=== PATIENT | male | born 2000 | race Caucasian/White ===

== ENCOUNTER 2022-08-16 12:37 | Emergency (ER) | payer OTHER ==
[~2022-08-16] VITALS: Ht 172.7 cm; Wt 63.5 kg
[2022-08-16 12:49] VITALS: BP 130/80
[2022-08-16] MEDS ORDERED: NACL 0.9% 1,000 ML IV ONE (13:20)
[2022-08-16] MEDS ORDERED: ONDANSETRON 4 MG/2 ML VIAL IVP ONE (13:20)
[2022-08-16 13:49] LABS: BASOPHILS % (AUTO) 0.3 % (0.0-2.0); EOSINOPHILS # (AUTO) 0.1 K/uL (0-0.4); EOSINOPHILS % (AUTO) 0.4 % (0.0-4.0); HEMATOCRIT 48.9 % (36-52); HEMOGLOBIN 16.6 g/dL (12.0-18.0); LYMPHOCYTES # (AUTO) 1.2 K/uL (2.0-11.5); LYMPHOCYTES % (AUTO) 7.4 % (20.5-51.1); MEAN CORPUSCULAR HEMOGLOBIN 30 pg (27-31); MEAN CORPUSCULAR HGB CONC 34 g/dL (33-37); MEAN CORPUSCULAR VOLUME 88.9 fL (80-94); MONOCYTES # (AUTO) 0.6 K/uL (0.8-1.0); MONOCYTES % (AUTO) 3.7 % (1.7-9.3); NEUTROPHILS # (AUTO) 14.5 K/uL (1.8-7.7); NEUTROPHILS % (AUTO) 88.2 % (42.2-75.2); PLATELET COUNT (AUTO) 300 K/uL (140-450); RED CELL DISTRIBUTION WIDTH 12.9 % (11.6-13.7); WHITE BLOOD COUNT (AUTO) 16.4 K/uL (4.8-10.8)
[2022-08-16 14:05] LABS: ALBUMIN 4.7 g/dL (3.4-5.0); ANION GAP 13.9 (8-16); CARBON DIOXIDE 27.4 mmol/L (21-32); CREATININE 1.3 mg/dL (0.6-1.3); POTASSIUM 4.3 mmol/L (3.5-5.1); TOTAL BILIRUBIN 0.5 mg/dL (0.0-1.0)
[2022-08-16] MEDS ORDERED: KETOROLAC 30 MG/ML VIAL IVP ONE (14:20)
[2022-08-16] MEDS ORDERED: ONDA-188 PO (14:22)
[2022-08-16 14:45] VITALS: BP 118/62
--- NOTE | 2022-08-16 15:02 | NUR ---
Patient discharged with v/s stable. Written and verbal after care instructions given. Patient alert, oriented and verbalized understanding of instructions. Ambulatory with steady gait. All questions addressed prior to discharge. ID band removed. Patient advised to follow up with PMD. Rx of Zofran given. Opportunity to ask questions provided and answered.
--- NOTE | 2022-08-16 15:03 | NUR ---
The patient's care was reviewed and supervised by Chani Medina, RN, RN.
[2022-08-18] MEDS ORDERED: LEVE250T1 PO ×2 (11:43→11:47)
== END 2022-08-16 14:40 | disposition home or self-care (01) ==
LOC: MED 12:37
DX: R11.2 Nausea with vomiting, unspecified (principal); R51.9 Headache, unspecified
CPT/HCPCS: 36415; 80053; 83690; 85025; 96361; 96374; 96375; 99284; J1885; J2405; J7030

== ENCOUNTER 2022-08-16 16:18 | Inpatient (IN) | payer OTHER ==
[~2022-08-16] VITALS: Ht 172.7 cm; Wt 68.0 kg
[~2022-08-16 16:18] MED LIST: ONDA-188 PO
--- NOTE | 2022-08-16 16:21 | NUR ---
Patient BIBA to bed 7.
[2022-08-16 16:24] VITALS: BP 126/69
--- NOTE | 2022-08-16 16:26 | NUR ---
Dr. Reyna evaluating patient at bedside.
[2022-08-16] MEDS ORDERED: METOCLOPRAMIDE 10 MG/2 ML INJ VIAL IVP ONE (16:35)
[2022-08-16] MEDS ORDERED: NACL 0.9% 1,000 ML IV ONE (16:35)
[2022-08-16] MEDS ORDERED: LORazepam 2 MG/ML VIAL ONE (17:14)
--- NOTE | 2022-08-16 17:16 | NUR ---
Patient noted to have a seizure for [address] Reyna made aware and at bedside. Ordered 2 mg IV Ativan given by RN.
[2022-08-16] MEDS ORDERED: levETIRAcetam 1,000 MG in NACL 0.9% 100 ML IV ONE (17:20)
[2022-08-16] MEDS ORDERED: LORazepam 2 MG/ML VIAL IVP ONE (17:20)
[2022-08-16] MEDS ORDERED: levETIRAcetam 100 MG/ML VIAL IV ONE (17:28)
--- NOTE | 2022-08-16 18:26 | NUR ---
Patient is still lethargic from seizure unable to obtain list of medications.
--- NOTE | 2022-08-16 18:39 | NUR ---
Spoke to Annette, patients mom, to update her on patients condition.
[2022-08-16] MEDS ORDERED: ONDANSETRON 4 MG/2 ML VIAL IVP PRN (18:50)
[2022-08-16] MEDS ORDERED: MORPHINE SULFATE 2 MG/ML SYR IVP PRN (18:50)
[2022-08-16] MEDS ORDERED: POTASSIUM CHLORIDE 10 MEQ TABER PO PRN (18:50)
[2022-08-16] MEDS ORDERED: LORazepam 2 MG/ML VIAL IVP PRN (18:50)
[2022-08-16] MEDS ORDERED: MAG SULF 2000 MG/WATER PREMIX 50 ML IV PRN (18:50)
[2022-08-16] MEDS ORDERED: ACETAMINOPHEN 325 MG TAB PO PRN (18:50)
[2022-08-16] MEDS ORDERED: DOCUSATE SODIUM 100 MG GELCAP PO PRN (18:50)
[2022-08-16] MEDS ORDERED: ZOLPIDEM 10 MG TAB PO PRN (18:50)
--- NOTE | 2022-08-16 18:58 | NUR ---
CALLED [facility] [phone] LEFT MESSSAGE INFORMED OF EEG
--- NOTE | 2022-08-16 19:20 | NUR ---
RECEIVED REPORT ON PATIENT. PATIENT RESTING IN BED WITH EYES CLOSED. DOESNT APPEAR TO BE IN DISTRESS. PATIENT ATTACHED ON BEDSIDE MONITOR. BED LOW AND LOCKED. VERENICE SIDE RAILS FOR SAFETY. CALL LIGHT IN REACH. ALL NEEDS MET.
--- NOTE | 2022-08-16 19:21 | NUR ---
Report given to TYLER Julian for transfer of care.
--- NOTE | 2022-08-16 19:40 | NUR ---
SWAB COLLECTED AND HANDED TO LAB
[2022-08-16 23:21] LABS: BARBITURATE, URINE NEGATIVE ng/ml (NEG <=200); BENZODIAZEPINE, URINE POSITIVE ng/mL (NEG <=200); CANNABINOID, URINE POSITIVE ng/mL (NEG <=50); COCAINE, URINE NEGATIVE ng/mL (NEG <=300); OPIATE, URINE NEGATIVE ng/mL (NEG <=2000); PHENCYCLIDINE SCREEN,URINE NEGATIVE ng/mL (NEG <=25)
--- NOTE | 2022-08-17 00:09 | NUR ---
PATIENT RESTING IN BED WITH EYES CLOSED. DOESNT APPEAR TO BE IN DISTRESS. PATIENT ATTACHED ON BEDSIDE MONITOR. BED LOW AND LOCKED. VERENICE SIDE RAILS FOR SAFETY. CALL LIGHT IN REACH. ALL NEEDS MET.
--- NOTE | 2022-08-17 02:04 | NUR ---
SPOKE TO PT MOTHER JESS. STATED THAT SHE IS TAKING A FLIGHT AND WILL BE ARRIVING AT 12P. WOULD LIKE TO BE UPDATED WITH ANY CHANGES ON STATUS.
--- NOTE | 2022-08-17 02:08 | NUR ---
PROVIDED PATIENT WITH MORE BLANKETS AND UPDATED ON MOTHERS PHONE CALL. BED LOW AND LOCKED. VERENICE SIDE RAILS UP FOR SAFETY. CALL LIGHT IN REACH. ALL NEEDS MET
--- NOTE | 2022-08-17 05:32 | NUR ---
LAB AT BEDSIDE
[2022-08-17 06:22] LABS: BASOPHILS # (AUTO) 0.1 K/uL (0.00-0.22); BASOPHILS % (AUTO) 0.4 % (0.0-2.0); EOSINOPHILS # (AUTO) 0.1 K/uL (0-0.4); EOSINOPHILS % (AUTO) 0.8 % (0.0-4.0); HEMOGLOBIN 14.2 g/dL (12.0-18.0); LYMPHOCYTES # (AUTO) 3.3 K/uL (2.0-11.5); LYMPHOCYTES % (AUTO) 22.6 % (20.5-51.1); MEAN CORPUSCULAR HEMOGLOBIN 30 pg (27-31); MEAN CORPUSCULAR HGB CONC 34 g/dL (33-37); MEAN CORPUSCULAR VOLUME 89.6 fL (80-94); MONOCYTES % (AUTO) 7.2 % (1.7-9.3); NEUTROPHILS # (AUTO) 10.1 K/uL (1.8-7.7); PLATELET COUNT (AUTO) 255 K/uL (140-450); RED BLOOD CELL COUNT(AUTO) 4.69 MIL/uL (4.20-6.10); RED CELL DISTRIBUTION WIDTH 12.6 % (11.6-13.7); WHITE BLOOD COUNT (AUTO) 14.6 K/uL (4.8-10.8)
[2022-08-17 06:53] LABS: POTASSIUM 3.7 mmol/L (3.5-5.1)
--- NOTE | 2022-08-17 07:27 | NUR ---
REPORT GIVEN TO LUANN HERZOG. TRANSFER OF CARE
--- NOTE | 2022-08-17 07:28 | NUR ---
REPORT RECEIVED FROM NEIL KONG. ASSUMED CARE AT THIS TIME
[2022-08-17 07:31] LABS: ANION GAP 16.1 (8-16); CARBON DIOXIDE 23.6 mmol/L (21-32)
--- NOTE | 2022-08-17 08:10 | NUR ---
RECEIVED PATIENT FROM ED VIA [facility]. A/O X 4. VSS. AFEBRILE. RESPIRATIONS EVEN AND UNLABORED. NO SOB NOTED. DENIES PAIN AT THIS TIME. NO ACUTE DISTRESS NOTED. HL INTACT AND PATENT WITH NO REDNESS OR IRRITATION TO SITE. ORIENTED TO ROOM AND CALL LIGHT SYSTEM. WILL CONTINUE TO MONITOR FOR SEIZURE ACTIVITY AND SAFETY. Shawna LEVY RN.
--- NOTE | 2022-08-17 08:22 | NUR ---
Patient will be admitted to care of MD CROCKER. Admited to TELE. Will go to room 109A. Belongings list completed. Report to CHAD SCOTT .
[2022-08-17 08:30] VITALS: BP 154/62
[2022-08-17] MEDS ORDERED: levETIRAcetam 500 MG in NACL 0.9% 100 ML IV SCH (09:00)
--- NOTE | 2022-08-17 09:21 | NUR ---
Chart checked and completed. The patient's care was reviewed and supervised by Jannet Mcdermott RN.
--- NOTE | 2022-08-17 10:15 | NUR ---
PATIENT HAS BEEN SCREENED AND CATEGORIZED LOW NUTRITION RISK. PATIENT WILL BE SEEN WITHIN 7 DAYS OF ADMISSION. 08/23/[address]
[2022-08-17 12:00] VITALS: BP 149/66
[2022-08-17] MEDS ORDERED: ACETAMINOPHEN 325 MG TAB PO PRN (13:25)
[2022-08-17] MEDS ORDERED: HYDROcodone/APAP 7.5/325 MG 1 TAB PO PRN (13:25)
[2022-08-17] MEDS ORDERED: ONDANSETRON 4 MG/2 ML VIAL IVP PRN (13:25)
[2022-08-17] MEDS ORDERED: NACL 0.9% 1,000 ML IV SCH (13:25)
[2022-08-17 14:56] LABS: AMYLASE 68 U/L (25-115); CHOL/HDL RATIO 3.4 (1-4.5); FREE T4 (FREE THYROXINE) 1.06 ng/dL (0.76-1.46); HDL CHOLESTEROL 37 mg/dL (40-60); LDL (CALC) 74 mg/dL (60-100); LIPASE 51 U/L (73-393); THYROID STIMULATING HORMONE 0.45 uIU/mL (0.34-3.74); TRIGLYCERIDES 65 mg/dL (30-150)
[2022-08-17 15:02] LABS: PROTHROMBIN TIME 11.1 secs (10.8-13.4)
[2022-08-17 16:00] VITALS: BP 152/61
--- NOTE | 2022-08-17 16:11 | NUR ---
DC PLANNING SW MET WITH PT AT BEDSIDE TO COMPLETE ASSESSMENT. PT REPORTS RESIDING IN THIRD FLOOR APT WITH TWO ROOMMATES AT THE ADDRESS LISTED ON FILE. PT IDENTIFIES JESS BRUNNER, MOTHER, AND ISAEL CORTEZ, FATHER, EMERGENCY CONTACT. PT DENIES AD IN PLACE AND DECLINED AD OFFERED BY SW. PT REPORTS BEING INCONSISTENT WITH MEETING WITH PCP AND REPORTS LAST VISIT WITH PCP 2 YRS AGO. PT REPORTS MEDICATION COMPLIANCE AND DENIES BARRIERS IN ACCESSING NEEDED MEDICATIONS. PT REPORTS RECEIVING MEDICATION FROM [facility] IN [place], WHEN NEEDED. PT REPORTS BEING INDEPENDENT IN ALL ACTIVITIES AND DENIES USE OF DME. PT REPORTS MH HX OF ANXIETY AND DEPRESSION WHICH HE REPORTS IS WELL MANAGED. PT REPORTS MEETING WITH THERAPIST 1X WEEKLY. PT REPORTS CANNABIS USE 1-2X A DAY HOWEVER, REPORTS HE RECENTLY INCREASED HIS USE DUE TO STRESS OF FINALS. SW PROVIDED PT WITH PSYCHOEDUCATION ON CANNABIS USE , PT RECEPTIVE AND ACCEPTED SUBSTANCE USE RESOURCES OFFERED BY MARK. PT DENIES HX OF HH, SNF PLACEMENT, HOSPICE, DIABETES, DIALYSIS TX. PT REPORTS DC PLAN IS TO RETURN HOME WITH MOM OR FRIENDS PROVIDING TRANSPORTATION, WHEN MEDICALLY STABLE. SW INQUIRED ON ADDITIONAL RESOURCES NEEDED, PT DECLINED. Addendum: 08/17/22 at 1613 by Naren CUNNINGHAM Amended: Links added.
--- NOTE | 2022-08-17 17:43 | NUR ---
PATIENT'S MOTHER LILLIAN AT BEDSIDE AND REQUEST TO SPEAK TO DR. MONTEJO. DR. MONTEJO CALLED AND SPOKE TO PATIENT'S MOTHER. PATIENT'S MOTHER STATES PATIENT MAY LEAVE AMA. MOTHER LILLIAN GOING TO SPEAK WITH PATIENT AND MAKE A DECISION IF THE PATIENT WILL LEAVE AMA. Shawna LEVY RN.
--- NOTE | 2022-08-17 18:30 | NUR ---
PATIENT LEAVING AMA. DR. MONTEJO AND BAND HEAD SAW OPERATOR SUSANNAH NOTIFIED. Shawna LEVY RN.
[2022-08-17] MEDS ORDERED: DOCUSATE SODIUM 100 MG GELCAP PO SCH (21:00)
[2022-08-18] MEDS ORDERED: PANTOPRAZOLE 40 MG INJ VIAL IVP SCH (09:00)
[2022-08-18] MEDS ORDERED: LEVE250T1 PO ×2 (11:43→11:47)
== END 2022-08-17 18:30 | disposition left against medical advice (07) | DRG 101 ==
LOC: MED 16:18 → MTU 18:49
PROVIDERS: ADMIT Family Medicine; ATTEND Family Medicine
DX: G40.909 Epilepsy, unspecified, not intractable, without status epilepticus (principal); R73.9 Hyperglycemia, unspecified; Z20.822 Contact with and (suspected) exposure to COVID-19; F41.9 Anxiety disorder, unspecified; F90.9 Attention-deficit hyperactivity disorder, unspecified type; F32.A Depression, unspecified; Z53.29 Procedure and treatment not carried out because of patient's decision for other reasons; Z87.891 Personal history of nicotine dependence
CPT/HCPCS: 36415; 70450; 71045; 80048; 80305; 82140; 82150; 83036; 83605; 83690; 83735; 83880; 84439; 84443; 84484; 85025; 85610; 85730; 93005; 95816; 96365; 96375; 99285; J1953; J2060; J2765